=== PATIENT | male | born 2000 | race Caucasian/White ===

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

== ENCOUNTER → 2021-02-12 17:31 | Outpatient (CLI) | payer BC, SELFPAY | PROVIDERS: PCP Family Medicine; Visit Provider Nurse Practitioner Family | DX: Z20.822 Contact with and (suspected) exposure to COVID-19 (principal) | CPT/HCPCS: C9803; U0003; U0005 ==

== ENCOUNTER 2023-10-05 22:23 | Emergency (ER) | payer BC, SELFPAY ==
[2023-10-05 22:25] VITALS: BP 133/92; PULSE 104; RESP 18; TEMP 37; O2SAT 99; BMI 23.1
[2023-10-05 22:37] VITALS: BMI 23.1
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
[2023-10-06] MEDS: LIDOCAINE 1% W/EPI 1:100,000 20ML VIAL SQ (02:16)
[2023-10-06 02:41] VITALS: BP 130/82; PULSE 77; RESP 18; TEMP 36.8; O2SAT 99
== END 2023-10-06 02:42 | disposition home or self-care (01) ==
PROVIDERS: Emergency Provider Emergency Medicine; PCP Family Medicine
DX: S06.0X0A Concussion without loss of consciousness, initial encounter (principal); S01.511A Laceration without foreign body of lip, initial encounter; Y04.0XXA Assault by unarmed brawl or fight, initial encounter
CPT/HCPCS: 12011; 70450; 70486; 72125; 99285